=== PATIENT | female | born 2000 | race Caucasian/White ===

== ENCOUNTER 2020-09-15 18:07 | Emergency (ER) | payer OTHER ==
[~2020-09-15] VITALS: Ht 154.9 cm; Wt 59.9 kg
== END 2020-09-15 22:49 | disposition home or self-care (01) ==
LOC: ER 18:07
DX: N93.8 Other specified abnormal uterine and vaginal bleeding (principal)

== ENCOUNTER 2020-11-22 10:29 | Outpatient (CLI) | payer OTHER | END 2020-11-22 12:16 | disposition home or self-care (01) | LOC: PRENATAL 10:29 | PROVIDERS: ATTEND Obstetrics & Gynecology Maternal & Fetal Medicine | DX: O35.0XX2 Maternal care for (suspected) central nervous system malformation in fetus, fetus 2 (principal); O35.3XX2 Maternal care for (suspected) damage to fetus from viral disease in mother, fetus 2; O98.512 Other viral diseases complicating pregnancy, second trimester; O26.852 Spotting complicating pregnancy, second trimester; O30.92 Multiple gestation, unspecified, second trimester; Z36.89 Encounter for other specified antenatal screening; Z3A.19 19 weeks gestation of pregnancy ==

== ENCOUNTER 2020-12-27 14:01 | Outpatient (CLI) | payer OTHER | END 2020-12-27 15:50 | disposition home or self-care (01) | LOC: PRENATAL 14:01 | PROVIDERS: ATTEND Obstetrics & Gynecology Maternal & Fetal Medicine | DX: O26.842 Uterine size-date discrepancy, second trimester (principal); O26.872 Cervical shortening, second trimester; O30.92 Multiple gestation, unspecified, second trimester; Z36.89 Encounter for other specified antenatal screening; Z3A.24 24 weeks gestation of pregnancy ==

== ENCOUNTER 2021-01-25 14:03 | Outpatient (CLI) | payer OTHER | END 2021-01-25 15:40 | disposition home or self-care (01) | LOC: PRENATAL 14:03 | PROVIDERS: ATTEND Obstetrics & Gynecology Maternal & Fetal Medicine | DX: O26.843 Uterine size-date discrepancy, third trimester (principal); O26.873 Cervical shortening, third trimester; O30.93 Multiple gestation, unspecified, third trimester; Z36.89 Encounter for other specified antenatal screening; Z3A.28 28 weeks gestation of pregnancy ==

== ENCOUNTER 2021-02-22 15:10 | Outpatient (CLI) | payer OTHER | END 2021-02-22 17:15 | disposition home or self-care (01) | LOC: PRENATAL 15:10 | PROVIDERS: ATTEND Obstetrics & Gynecology Maternal & Fetal Medicine | DX: O26.843 Uterine size-date discrepancy, third trimester (principal); O26.873 Cervical shortening, third trimester; O36.8132 Decreased fetal movements, third trimester, fetus 2; O30.93 Multiple gestation, unspecified, third trimester; Z36.89 Encounter for other specified antenatal screening; Z3A.32 32 weeks gestation of pregnancy ==

== ENCOUNTER 2022-03-05 12:56 | Outpatient (CLI) | payer OTHER | END 2022-03-05 14:26 | disposition home or self-care (01) | LOC: PRENATAL 12:56 | PROVIDERS: ATTEND Obstetrics & Gynecology Maternal & Fetal Medicine | DX: O35.9XX0 Maternal care for (suspected) fetal abnormality and damage, unspecified, not applicable or unspecified (principal); O35.3XX0 Maternal care for (suspected) damage to fetus from viral disease in mother, not applicable or unspecified; O09.219 Supervision of pregnancy with history of pre-term labor, unspecified trimester; O44.00 Complete placenta previa NOS or without hemorrhage, unspecified trimester; Z3A.20 20 weeks gestation of pregnancy ==

== ENCOUNTER 2022-03-26 13:53 | Outpatient (CLI) | payer OTHER ==
[2022-03-26] MEDS ORDERED: PRENATAL TABLE1 EAC1 PO (13:55)
== END 2022-03-27 20:42 | disposition home or self-care (01) ==
LOC: OBS/DEL 13:53
PROVIDERS: ATTEND Obstetrics & Gynecology Obstetrics
DX: O26.892 Other specified pregnancy related conditions, second trimester (principal); Z3A.23 23 weeks gestation of pregnancy; R10.2 Pelvic and perineal pain

== ENCOUNTER 2022-05-01 14:26 | Outpatient (CLI) | payer OTHER ==
[~2022-05-01 14:26] MED LIST: PRENATAL TABLE1 EAC1 PO
== END 2022-05-01 15:12 | disposition home or self-care (01) ==
LOC: PRENATAL 14:26
PROVIDERS: ATTEND Obstetrics & Gynecology Maternal & Fetal Medicine
DX: O26.849 Uterine size-date discrepancy, unspecified trimester (principal); O36.5990 Maternal care for other known or suspected poor fetal growth, unspecified trimester, not applicable or unspecified; O34.219 Maternal care for unspecified type scar from previous cesarean delivery; Z3A.28 28 weeks gestation of pregnancy

== ENCOUNTER 2022-05-29 15:36 | Outpatient (CLI) | payer OTHER | END 2022-05-29 16:40 | disposition home or self-care (01) | LOC: PRENATAL 15:36 | PROVIDERS: ATTEND Obstetrics & Gynecology Maternal & Fetal Medicine | DX: O26.849 Uterine size-date discrepancy, unspecified trimester (principal); O34.219 Maternal care for unspecified type scar from previous cesarean delivery; O36.5990 Maternal care for other known or suspected poor fetal growth, unspecified trimester, not applicable or unspecified; Z3A.32 32 weeks gestation of pregnancy ==

== ENCOUNTER 2022-06-16 00:26 | Inpatient (IN) | payer OTHER ==
[~2022-06-16] VITALS: Ht 149.9 cm; Wt 73.5 kg
[2022-06-16] MEDS ORDERED: IRON236 MG (02:33)
== END 2022-06-18 17:39 | disposition home or self-care (01) | DRG 833 ==
LOC: OBS/DEL 00:26 → OB/GYN 08:56 → LDR 08:56 → OB/GYN 06-17 20:24
PROVIDERS: ADMIT Obstetrics & Gynecology Obstetrics; ATTEND Obstetrics & Gynecology Obstetrics
PROC: 4A1HXCZ Monitoring of Products of Conception, Cardiac Rate, External Approach (ICD-10-PCS; principal; 2022-06-16)
DX: O60.03 Preterm labor without delivery, third trimester (principal); Z3A.35 35 weeks gestation of pregnancy; Z20.822 Contact with and (suspected) exposure to COVID-19

== ENCOUNTER 2022-06-19 14:06 | Outpatient (CLI) | payer OTHER ==
[~2022-06-19 14:06] MED LIST changes: +IRON236 MG
== END 2022-06-19 17:08 | disposition home or self-care (01) ==
LOC: PRENATAL 14:06
PROVIDERS: ATTEND Obstetrics & Gynecology Maternal & Fetal Medicine
DX: O34.219 Maternal care for unspecified type scar from previous cesarean delivery (principal); O26.849 Uterine size-date discrepancy, unspecified trimester; O36.5990 Maternal care for other known or suspected poor fetal growth, unspecified trimester, not applicable or unspecified; Z3A.35 35 weeks gestation of pregnancy

== ENCOUNTER 2022-07-07 13:08 | Inpatient (IN) | payer OTHER ==
[~2022-07-07] VITALS: Ht 149.9 cm; Wt 2.7 kg
== END 2022-07-10 14:14 | disposition home or self-care (01) | DRG 785 ==
LOC: OB/GYN 13:08 → O/R 13:08 → LDR 13:08 → O/R 16:25 → OB/GYN 18:23
PROVIDERS: ADMIT Obstetrics & Gynecology Obstetrics; ATTEND Obstetrics & Gynecology Obstetrics
PROC: 0UB70ZZ Excision of Bilateral Fallopian Tubes, Open Approach (ICD-10-PCS; 2022-07-07)
PROC: 4A1HXCZ Monitoring of Products of Conception, Cardiac Rate, External Approach (ICD-10-PCS; 2022-07-07)
PROC: 10D00Z1 Extraction of Products of Conception, Low, Open Approach (ICD-10-PCS; principal; 2022-07-07 17:00)
DX: O34.211 Maternal care for low transverse scar from previous cesarean delivery (principal); Z3A.38 38 weeks gestation of pregnancy; Z37.0 Single live birth; Z30.2 Encounter for sterilization; Z20.822 Contact with and (suspected) exposure to COVID-19

== ENCOUNTER 2022-10-30 14:03 | Emergency (ER) | payer OTHER ==
[~2022-10-30] VITALS: Ht 149.9 cm; Wt 68.0 kg
[2022-10-30] MEDS ORDERED: OSEL75CA PO (16:40)
[2022-10-30] MEDS ORDERED: DOLOGEN CAPLET1 EACH PO (16:40)
[2022-10-30] MEDS ORDERED: TUSNEL LIQUID178 ML PO (16:40)
== END 2022-10-30 17:05 | disposition home or self-care (01) ==
LOC: ER 14:03
DX: J10.1 Influenza due to other identified influenza virus with other respiratory manifestations (principal); Z20.822 Contact with and (suspected) exposure to COVID-19

== ENCOUNTER 2022-11-08 03:10 | Emergency (ER) | payer OTHER ==
[~2022-11-08] VITALS: Ht 149.9 cm; Wt 68.0 kg
[~2022-11-08 03:10] MED LIST changes: +DOLOGEN CAPLET1 EACH PO; +OSEL75CA PO; +TUSNEL LIQUID178 ML PO
== END 2022-11-08 11:33 | disposition home or self-care (01) ==
LOC: ER 03:10
DX: N20.0 Calculus of kidney (principal)

== ENCOUNTER → 2023-04-13 | Emergency (ER) | payer OTHER | END | disposition left against medical advice (07) | LOC: ER 17:00 | DX: Z53.21 Procedure and treatment not carried out due to patient leaving prior to being seen by health care provider (principal) ==

== ENCOUNTER 2024-03-26 22:00 | Emergency (ER) | payer OTHER ==
[~2024-03-26] VITALS: Ht 149.9 cm; Wt 67.6 kg
[2024-03-27] MEDS ORDERED: ZITHROMAX500 MG PO (01:29)
[2024-03-27] MEDS ORDERED: DEXAMETHASONE SODIUM PHOSPHATE 4 MG/ML VIAL IM ONE (01:30)
[2024-03-27] MEDS ORDERED: GUAIFENESIN/DEXTROMETHORPHAN 10ML BLIST.PACK PO ONE ×2 (01:30→01:33)
[2024-03-27] MEDS ORDERED: AZITHROMYCIN 500 MG TABLET PO ONE ×2 (01:30→01:33)
[2024-03-27] MEDS ORDERED: DEXAMETHASONE SODIUM PHOSPHATE 4 MG/ML VIAL ONE (01:33)
== END 2024-03-27 01:40 | disposition home or self-care (01) ==
LOC: ER 22:03
DX: J06.9 Acute upper respiratory infection, unspecified (principal)